=== PATIENT | male | born 1995 | race Caucasian/White ===

== ENCOUNTER 2016-12-31 16:23 | Emergency (ER) | payer OTHER ==
[2016-12-31 16:33] VITALS: TEMP 36.5
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
--- NOTE | 2016-12-31 17:23 | DIAGNOSTIC IMAGING REPORT ---
RIGHT KNEE 2 VIEWS HISTORY: right knee twisting injury, eval patellar dislocation/fracture COMPARISON: None. FINDINGS: There is no fracture or dislocation. Small knee effusion. No soft tissue swelling. No radiopaque foreign bodies. IMPRESSION: No fractures. Small knee effusion. Electronically signed by: Kiran Pollack M.D. 12/31/2016 5:22 PM Dictated Date/Time: 12/31/2016 5:20 PM
--- NOTE | 2016-12-31 18:00 | DIAGNOSTIC IMAGING REPORT ---
R KNEE 1 OR 2 VIEWS ROUTINE CLINICAL HISTORY: 21 years-old Male presenting with sunrise view please. TECHNIQUE: [place] view of the right knee was obtained. COMPARISON: Correlation made to plain radiographs of the right knee performed earlier the same day. FINDINGS: Tiny osseous fragment noted at the medial aspect of the medial patellar facet raising concern for an avulsion injury of the medial patellar retinacula. Joint effusion and subcutaneous swelling noted. IMPRESSION: Concern for avulsion injury of the medial patellar retinacula. Further evaluation with CT or MR could be considered as clinically warranted. Electronically signed by: Zach Lee M.D. 12/31/2016 5:59 PM Dictated Date/Time: 12/31/2016 5:58 PM
[2016-12-31 18:31] VITALS: BP 122/72; PULSE 95; O2SAT 99
== END 2016-12-31 18:45 | disposition home or self-care (01) ==
LOC: EDBD 16:23 → C.EDD 16:24
DX: S86.811A Strain of other muscle(s) and tendon(s) at lower leg level, right leg, initial encounter (principal); S83.91XA Sprain of unspecified site of right knee, initial encounter; X50.9XXA Other and unspecified overexertion or strenuous movements or postures, initial encounter

== ENCOUNTER → 2017-06-23 | Outpatient (CLI) | payer OTHER ==
--- NOTE | 2017-06-23 12:27 | DIAGNOSTIC IMAGING REPORT ---
RIGHT KNEE 3 VIEWS CLINICAL HISTORY: Right knee pain. FINDINGS: AP, lateral, and sunrise views of the right knee are compared to study dated 12/31/2016. The skeletal structures are well mineralized. No fracture or dislocation is seen. A chronic avulsion injury is again noted along the medial aspect of the patellar facet on the sunrise view. The joint spaces of the knee are preserved. A small joint effusion is noted. The overlying soft tissues are within normal limits. IMPRESSION: 1. There is no radiographic evidence of right knee fracture. 2. Small joint effusion. Electronically signed by: Aureliano Ferro M.D. 06/23/2017 12:26 PM Dictated Date/Time: 06/23/2017 12:24 PM
== END | disposition home or self-care (01) ==
LOC: C.MNPGOH 11:52 → C.RAD1850 13:20 → EDSTATUS 13:23
PROVIDERS: ATTEND Nurse Practitioner Adult Health
DX: M25.561 Pain in right knee (principal); M25.461 Effusion, right knee

== ENCOUNTER → 2017-08-08 | Day surgery (SDC) | payer BC ==
[2017-07-26 13:02] VITALS: Ht 180.3 cm; Wt 93.2 kg
[~2017-08-08] VITALS: Ht 180.3 cm; Wt 93.2 kg
[~2017-08-08] MED LIST: ATROPINE SULFATE 0.1 MG/ML 5ML SYR IV PRN; CEFAZOLIN 2000MG IV PUSH 15 ML IV SCH; DEXAMETHASONE SOD INJ 4 MG/ML VIAL ONE; EpHEDrine SULFATE 50MG/5ML SYR ONE; EpHEDrine SULFATE INJ 50 MG/ML AMP IV PRN; EpINEphrine HCL INJ 1 MG/ML 1ML SYRINGE ONE; FENTANYL CITRATE INJ 50 MCG/1 ML 2 ML VIAL ONE; FLUMAZENIL 0.1 MG/1 ML 10 ML VIAL IV PRN; HYDROmorphone INJ 0.5 MG/0.5 ML SYR IV PRN; LACTATED RINGER'S 1000ML 1,000 ML IV SCH; LIDO 2%/EPINEPHRINE 1:100000 20 ML VIAL ONE; LIDOCAINE HCL 2% 2 ML VIAL (20MG/ML) ONE; METOCLOPRAMIDE HCL INJ 5 MG/ML 2 ML VIAL IV PRN; METOPROLOL TARTRATE 1 MG/ML VIAL IV STA; METOPROLOL TARTRATE 1 MG/ML VIAL ONE; MIDAZOLAM HCL 1 MG/ML 2ML VIAL ONE; MISC1CAP66 PO; NALOXONE HCL 0.4 MG/1 ML VIAL/CARP IV PRN; ONDANSETRON INJ 2 MG/ML 2 ML VIAL IV PRN; ONDANSETRON INJ 2 MG/ML 2 ML VIAL ONE; OXYCODONE/ACETAMINOPHEN 5-325 TAB PO PRN; PROMETHAZINE HCL INJ 12.5 MG in SODIUM CHLORIDE 0.9% 50ML 50 ML IV PRN; PROPOFOL IV EMULSION 10 MG/ML 20 ML VIAL ONE; ROPIVACAINE 0.5% 5 MG/ML 30 ML VIAL ONE; SODIUM CHLORIDE 0.9% 1000ML 1,000 ML IV SCH; SODIUM CHLORIDE 0.9% INJ 10 ML VIAL ONE
--- NOTE | 2017-08-08 07:04 | History & Physical Bridge - SC ---
H&P Re-Evaluation Bridge Note: I have examined the patient, reviewed the History & Physical and in the interval since the performance of the History & Physical I have noted the following changes of clinical significance: No changes noted
--- NOTE | 2017-08-08 11:05 | [facility] Post Operative Brief Note ---
Immediate Operative Summary Operative Date August 08, 2017. Pre-Operative Diagnosis Right Knee Patellar Instability Post-Operative Diagnosis Same Procedure(s) Performed Right Knee Arthroscopy, Chondroplasty Of Patella, Medial Patella Femoral Ligament Reconstruction With Allograft Surgeon Dr. Walker Lawyer Surgeon(s) Kristie Dang PA-C Estimated Blood Loss 5ml Findings Consistent with Post-Op Diagnosis Fluids (cc crystalloids) 1000 cc Specimens None Drains None Anesthesia Type General Regional Complication(s) none Disposition Disposition: Recovery Room / PACU
--- NOTE | 2017-08-08 11:21 | [facility] Operative Report ---
Operative Report Operative Date August 08, 2017. Pre-Operative Diagnosis Right Knee Patellar Instability Post-Operative Diagnosis Same Procedure(s) Performed Right Knee Arthroscopy, Chondroplasty Of Patella, Medial Patella Femoral Ligament Reconstruction With Allograft Surgeon Dr. Walker Manager Of Photography Surgeon(s) Kristie Dang PA-C Estimated Blood Loss 5ml Fluids 1000 cc Specimens None Drains None Anesthesia Type General Regional Complication(s) none Disposition Recovery Room / PACU Description of Procedure I was present during entire procedure and assisted with wound closure. Please see Dr. Walker procedure note for specifics of case. I attest to the content of the Intraoperative Record and any orders documented therein. Any exceptions are noted below.
--- NOTE | 2017-08-08 11:25 | Discharge Instructions ---
Discharge Instructions Date of Service August 08, 2017. Admission Reason for Admission: Right [place] Patellar Instability Discharge Discharge Diagnosis / Problem: Right knee patellar instability Discharge Goals Goal(s): Decrease discomfort, Improve function, Increase independence Activity Recommendations Activity Limitations: as noted below Lifting Limitations: none Exercise/Sports Limitations: until after follow-up appointment May Resume Sexual Activity: when tolerated Shower/Bathe: tomorrow, keep incision dry Driving or Machine Use: No driving until cleared by continuous improvement specialist Weightbearing Status: Right weightbearing (as tolerated with brace locked in extension and with aid of crutches.) . Instructions / Follow-Up Instructions / Follow-Up Post-operative Instructions Dear Patient and Family/Friends, Before you are discharged from the hospital, it is important to know what to expect when you get home after surgery. To that end, we have created this sheet of discharge instructions which covers many commonly asked questions. Make sure you go through this sheet in its entirety with your nurse before you are discharged. Please note that we will go over the specifics of your surgery and recovery when you return for your first post-operative visit. Sincerely, Dr. Walker Pain Expect to be in a fair amount of pain after surgery. Remember, our goal is not to eliminate your pain, but to make it tolerable. It is a good idea to stay ahead of your pain by taking the medications you were prescribed once you get home. Typically, the pain starts improving 3-7 days after surgery. You should start weaning off the narcotic pain medication (oxycodone, hydrocodone, hydromorphone, morphine) as soon as your pain improves. Please call our office if your pain is not adequately controlled. Ice Ice your operative site at least 5 times a day for 15-30 minutes at a time. Make sure you have a thin cloth between the ice or cooling unit and your skin to prevent shrestha bite. This is especially important if you received a nerve block. Continue icing your operative site for the first 5-7 days after surgery , then as needed. Diet/Nausea/Vomiting Start by drinking clear liquids and eating crackers. If you can tolerate this, then you may resume your normal diet. If you feel nauseated or vomit, take Zofran/ondansetron (if prescribed). Please call our office if you have intractable nausea or vomiting, or, if after hours, you may go to the Emergency Room for help. Constipation Constipation is a common side effect of narcotic pain medication. If you have not had a bowel movement within 2 days after surgery, we recommend purchasing an over the counter laxative such as Milk of Magnesia, Dulcolax, or Miralax from a local pharmacy, and taking it as instructed. Call our clinic if any questions. Slings and Braces If you were placed in a sling or brace, it must be worn at all times, including sleep. You may remove your sling or brace for physical therapy, home exercises , and showering. The length of time you will be in your brace and range of motion restrictions depends on what surgery you had; these details will be reviewed at your first post-operative appointment. Nerve block The anesthesia team sometimes places a nerve block to help with post-operative pain control. This results in significant numbness and inability to move the extremity. The nerve block usually wears off in 8-12 hours, but sometimes can last up to 24 hours. Please call our office if you are still unable to move your extremity after 24 hours, unless you received a pain pump to take home. Nerve blocks typically wear off quickly, so start taking pain medication as soon as you start feeling soreness near your surgical site. Weight bearing and Range of Motion. Do not bear any weight through your operative extremity immediately after surgery. If you had upper extremity surgery, do not lift anything with that arm. If you are in a knee brace, keep it locked in place until your follow-up. We will discuss your weight bearing, range of motion, and lifting restrictions in detail at your first post-operative appointment. Continuous Passive Motion (CPM) Machine If you were prescribed a CPM machine, it will start after your first post- operative appointment, at which time we will give you instructions on the range of motion settings and duration of treatment Physical therapy You will be given a prescription for physical therapy or occupational therapy at your first post-operative appointment. Typically, patients start therapy within 1 week of surgery Wound care and showering We will inspect your wound at your first post-operative visit, and may do a dressing change at that time. Most patients will be in a water-proof dressing that is removed 14 days after surgery. It is normal to see some dried blood on the dressing. Do not remove your dressing, paper strips or sutures yourself unless you are given permission. Showering is allowed the day after surgery. Do not scrub or remove any dressings. The wound should not be submerged underwater (i.e. in a bathtub or pool) until 4 weeks after surgery ELIEZER stockings If you were given white stockings, these are to be worn at all times except to shower (on both legs) for the first 2 weeks after surgery. Driving You may not drive while taking narcotic pain medication or while in a cast, splint, sling or brace. You, the patient, need to make the final determination about when you are safe to drive, however, the earliest you may consider driving after surgery is below: Hand/Wrist/Elbow Surgery: 3 days Shoulder Surgery: 2 weeks Hip,/Knee/Ankle Surgery: 4 weeks Fracture repair: 6 weeks Return to Work Your return to work depends on what surgery was done and what type of work you do. Please bring any paperwork your employer needs completed to your first post -operative visit. Also, bring a description of your job duties, as this helps us to understand what risks you may face at work. Travel Avoid long distance travel (greater than 1 hour) in airplanes and cars for the first 6 weeks after surgery. If you must travel, you need to have a Doppler ultrasound done before you travel to rule out a blood clot in your legs. Follow-up You should have a follow-up appointment already scheduled 1-2 days after surgery. If not, please contact our office to make this appointment before you leave the hospital. When to call the office It is normal to have swelling and bruising in the limb that was operated on. This will improve with time. It is also normal to have fevers for the first 2 days after surgery. Reasons you should call your doctor include: Uncontrolled pain; Nausea, vomiting, or constipation that does not improve with medication; Fevers over 101.5, chills, sweats; Drainage or bleeding from the wound; Foul odor; Spreading areas of redness; Any other concerns Current Hospital Diet Patient's current hospital diet: Discharge Diet Recommended Diet: Regular Diet Procedures Procedures Performed: Right Knee Arthroscopy, Chondroplasty Of Patella, Medial Patella Femoral Ligament Reconstruction With Allograft Pending Studies Studies pending at discharge: no Medical Emergencies . Who to Call and When: Medical Emergencies: If at any time you feel your situation is an emergency, please call 911 immediately. . Non-Emergent Contact Non-Emergency issues call your: Primary Care Provider Call Non-Emergent contact if: you have a fever, temperature is above 101.5, your pain is not controlled, your pain is worsening, wound has increased drainage, you have any medication questions . "Provider Documentation" section prepared by Fritz Dang. . [place] Drug Monitoring Program Search Results: patient reviewed within database, no issues identified, see additional documentation
[2017-08-08 12:28] VITALS: TEMP 37
--- NOTE | 2017-08-08 12:32 | OPERATIVE REPORT ---
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 OPERATIONS PERFORMED: 1. Right knee arthroscopy with chondroplasty of the patella. 2. Right knee open MPFL reconstruction with peroneus longus allograft. SURGEON: Zach Walker MD COMMUNITY ENGAGEMENT LEADER: Kristie Dang ESTIMATED BLOOD LOSS: 5 mL. URINE OUTPUT: Not recorded. SPECIMENS: None. COMPLICATIONS: None. IMPLANTS: 1. One Arthrex 8 x 28 mm PEEK interference screw. 2. One Arthrex FiberTak anchor. 3. One Arthrex small joint SutureTak anchor. 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 His exam is significant for patellar apprehension. 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 I had a long discussion with him about the risks and benefits of surgery, alternatives to surgery, and expected outcomes. After reviewing all these, he elected to proceed with surgery. All questions were answered. Informed consent was signed. DESCRIPTION OF THE OPERATION: The patient was identified in the preoperative holding area where his surgical site was marked. He was given an adductor canal block by anesthesia and brought back to the main operating room where he was placed on the operating room table and general anesthesia was administered. Exam under anesthesia was then performed demonstrating the MPFL to be incompetent. We then prepped and draped the leg in the normal sterile fashion. Prior to incision, a multidisciplinary timeout was called. All in the room were in agreement. We began by exsanguinating the limb with an Esmarch bandage. Tourniquet was inflated to 250 mmHg. Total tourniquet time for the case was 90 minutes. A lateral viewing portal was created followed by a medial working portal under direct visualization. A diagnostic arthroscopy was then performed revealing the following findings: 1. 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 The lateral facet and the apex of the patella were intact. 2. 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 3. The medial and lateral gutters were free of any loose bodies. 4. The medial compartment showed some grade 1 softening of the medial femoral condyle. The medial tibial plateau and the medial meniscus were intact. 5. ACL and PCL were intact. 6. The lateral compartment of the knee showed grade 1 softening of the lateral femoral condyle and lateral tibial plateau. The lateral meniscus was intact. With flexion of the knee, the patella was clearly subluxated laterally and with a laterally directed force was easily dislocated. Having completed our diagnostic arthroscopy, we then introduced the 4.0 shaver through the medial working portal and was used to perform a gentle chondroplasty of the medial facet of the patella to remove any loose cartilage flaps so that with a stable smooth surface remaining. The arthroscopic instruments were then removed from the knee. A 3-cm incision was made along the medial aspect of the patella. We dissected through the subcutaneous tissues to the level of fascia. The fascia was incised in line with the incision. The medial aspect of the patella was curetted. There was a small cortical fracture that was approximately 3 x 4 mm that was excised. We then opened up the 2 Arthrex FiberTak [address] to place into the superior medial and medial aspect of the patella. When we placed the second anchor more distally through the area where there was a small cortical fracture, the anchor did not have adequate fixation and pulled out. Therefore, we upsized it to a small joint SutureTak anchor which had good fixation. Next, a 4-cm long incision was made directly overlying the insertion of the MPFL on the femur. We dissected down through subcutaneous tissues taking great care to look for any branches of the saphenous nerve which were not encountered during our dissection. We raised full thickness flaps off the fascia. The fascia was then incised in line with the incision. The bony landmarks of the knee were easily palpable including the gastrocnemius tubercle, adductor tubercle, and medial epicondyle. The Beath pin was placed approximately 2 mm anterior and 3 mm distal to the adductor tubercle. This was then drilled into the bone and clamped with a hemostat. We then brought in fluoroscopy to verify that we were at Schottle's point. This was confirmed with fluoroscopy. The Beath pin was then drilled the remaining of the way through the knee out the lateral aspect of the femur. We then used an 8-mm reamer to drill to a depth of 40 mm. A large curved clamp was then used to dissect between layers 2 and 3 underneath the vastus medialis to connect the 2 incisions. Next, the peroneus longus allograft was brought up on to the table. It had completely thawed on the back table. The midpoint of the graft was marked and the sutures from the FiberTak and the small joint SutureTak anchor were passed up through the mid portion of the graft and tied down obtaining excellent fixation of the medial aspect of the patella. The 2 free ends were then passed underneath the vastus medialis down to the Beath pin. We marked out where the graft met the Beath pin at the cortical surface. We then measured 25 mm distal to this and used a #2 FiberLoop in each limb of the graft to whipstitch the terminal 25 mm. The excess tendon was cut and discarded. Next, the Beath pin was used to shuttle the sutures out the lateral aspect of the knee. We visualized the graft passing down into the bone tunnel. We then placed our 8 x 28 mm PEEK interference screw with the knee held to 45 degrees of flexion and the patella centered in the trochlea without over-tensioning the patella. Once the screw was all the way down, we then inserted the scope into the knee back into the knee. We then visualized the tracking of the patella which was much improved without over-tensioning the patella being well-centered in the trochlea. At this point, the arthroscopic instruments were removed. The fascia overlying the suture anchors were closed with the remaining suture tails. The fascia at the adductor tubercle was closed with a running 0 Vicryl suture. The subcutaneous layer was closed with a single 0 Vicryl suture at the adductor tubercle. The deep dermis was run with a 3-0 Vicryl for each incision. Skin was then closed with 3-0 Monocryl. Steri-Strips were applied. Total of 30 mL of Naropin were used to anesthetize the incision sites with 10 mL in the arthroscopic portals in the knee and 10 mL in each of the 2 incisions for the MPFL reconstruction. Sterile dressings were then applied. The patient was placed in a hinged knee brace locked in full extension. He was then awoke from anesthesia and transferred to the recovery room in stable condition. POSTOPERATIVE COURSE: The patient will be discharged home from the recovery room. He will follow up in my clinic tomorrow for wound inspection. We will have him start physical therapy at that point. Aspirin for DVT prophylaxis. I attest to the content of the Intraoperative Record and any orders documented therein. Any exception s are noted below.
--- NOTE | 2017-08-08 13:20 | Anesthesia Progress Nt - [facility] ---
Anesthesia Post Op Note Date & Time August 08, 2017 at 13:20 Vital Signs Pain Intensity: 3.0 Vital Signs Past 12 Hours Date Time Temp Pulse Resp B/P (MAP) Pulse Ox O2 Delivery O2 Flow Rate FiO2 08/08/17 12:53 118 157/72 08/08/17 12:28 37.0 116 16 112/58 (76) 97 08/08/17 12:17 36.7 08/08/17 12:16 117/69 (85) 08/08/17 12:12 116 15 08/08/17 12:12 116 15 94 08/08/17 12:11 128/68 (93) 08/08/17 12:07 108 15 93 08/08/17 12:07 107 15 08/08/17 12:06 138/71 (84) 08/08/17 12:02 112 10 97 08/08/17 12:02 112 10 08/08/17 12:01 138/78 (84) 08/08/17 11:57 114 8 08/08/17 11:57 117 8 96 08/08/17 11:56 125/66 (87) 08/08/17 11:52 111 19 08/08/17 11:52 109 19 94 08/08/17 11:51 130/68 (73) 08/08/17 11:47 116 16 08/08/17 11:47 116 16 95 08/08/17 11:46 137/68 (92) 08/08/17 11:42 116 11 08/08/17 11:42 114 11 96 08/08/17 11:41 135/77 (93) 08/08/17 11:37 112 18 96 08/08/17 11:37 112 18 08/08/17 11:36 137/76 (95) 08/08/17 11:33 Room Air 08/08/17 11:32 102 18 08/08/17 11:32 103 18 99 08/08/17 11:31 140/74 (87) 08/08/17 11:27 113 15 99 08/08/17 11:27 112 15 08/08/17 11:26 155/76 (103) 08/08/17 11:22 112 19 08/08/17 11:22 110 19 99 08/08/17 11:21 150/75 (103) 08/08/17 11:19 135/79 (108) 08/08/17 11:17 37.4 110 16 135/79 99 Diffusion Mask 5 08/08/17 09:06 147/86 08/08/17 09:05 91 08/08/17 09:05 93 11 100 08/08/17 09:01 128/84 08/08/17 09:00 102 08/08/17 09:00 104 23 100 08/08/17 08:55 110 08/08/17 08:55 107 39 129/100 100 08/08/17 08:51 146/98 08/08/17 08:50 107 17 100 08/08/17 08:50 106 08/08/17 08:45 86 16 100 08/08/17 08:45 88 08/08/17 08:40 87 08/08/17 08:40 89 0 95 08/08/17 08:35 77 0 97 08/08/17 08:35 81 08/08/17 08:30 82 08/08/17 08:30 85 0 95 08/08/17 08:25 89 08/08/17 08:25 90 0 98 08/08/17 08:20 87 08/08/17 08:20 91 0 96 08/08/17 08:15 81 0 95 08/08/17 08:15 85 08/08/17 08:10 86 0 96 08/08/17 08:10 85 08/08/17 08:05 96 08/08/17 08:05 96 0 96 08/08/17 08:00 102 0 97 08/08/17 08:00 99 08/08/17 07:55 92 08/08/17 07:55 94 0 99 08/08/17 07:50 96 0 98 08/08/17 07:50 93 08/08/17 07:45 101 08/08/17 07:45 101 0 99 08/08/17 07:40 93 0 08/08/17 07:35 97 0 08/08/17 07:11 37.0 95 16 140/97 (111) 97 Room Air Notes Mental Status: alert / awake / arousable, participated in evaluation Pt Amnestic to Procedure: Yes Nausea / Vomiting: adequately controlled Pain: adequately controlled Airway Patency, RR, SpO2: stable & adequate BP & HR: stable & adequate Hydration State: stable & adequate Anesthetic Complications: no major complications apparent
[2017-08-08 13:23] VITALS: BP 129/71; PULSE 98; O2SAT 96
== END | disposition home or self-care (01) ==
LOC: X.SURG 06:57
PROVIDERS: ATTEND Orthopaedic Surgery
DX: M23.51 Chronic instability of knee, right knee (principal); M22.41 Chondromalacia patellae, right knee; Z82.49 Family history of ischemic heart disease and other diseases of the circulatory system